=== PATIENT | female | born 1945 | race Caucasian/White ===

== ENCOUNTER 2017-03-29 07:10 | Outpatient (CLI) | payer MEDICARE ==
[~2017-03-29 07:10] MED LIST: ASPI-1265 PO; MULT-1179 PO; NAPR220C15 PO
[2017-03-29 08:44] LABS: BASOPHILS % (AUTO) 0.7 % (0-1); EOSINOPHILS # (AUTO) 0.3 X10'3 (0-0.9); EOSINOPHILS % (AUTO) 6.1 % (0-6); HEMATOCRIT 39.8 % (35.0-45.0); HEMOGLOBIN 13.5 g/dl (12.0-16.0); LYMPHOCYTES # (AUTO) 1.6 X10'3 (1.1-4.8); LYMPHOCYTES % (AUTO) 33.9 % (21-51); MEAN CORPUSCULAR HGB CONC 33.9 % (33.0-36.5); MEAN CORPUSCULAR VOLUME 91.2 FL (78-98); MEAN PLATELET VOLUME 7.8 FL (7.4-10.4); MONOCYTES # (AUTO) 0.4 X10'3 (0-0.9); MONOCYTES % (AUTO) 8.2 % (2-12); NEUTROPHILS # (AUTO) 2.5 X10'3 (1.8-7.7); NEUTROPHILS % (AUTO) 51.1 % (42-75); PLATELET COUNT 247 X10'3 (140-440); RED BLOOD COUNT 4.37 X10'6 (4.20-5.60); RED CELL DISTRIBUTION WIDTH 13.7 % (11.5-14.5); WHITE BLOOD COUNT 4.8 X10'3 (4.5-11.0)
[2017-03-29 08:44] LABS: CLARITY,URINE CLOUDY (Clear); COLOR,URINE YELLOW (Yellow); GLUCOSE, URINE NEGATIVE (Neg); KETONES,URINE NEGATIVE (Neg); LEUKOCYTE ESTERASE ,URINE SMALL (Neg); NITRITES, URINE NEGATIVE (Neg); OCCULT BLOOD,URINE TRACE-INTACT (Neg); PH,URINE 7.5 (4.8-8.0); PROTEIN,URINE NEGATIVE (Neg); UROBILINOGEN,URINE 0.2 E.U/dL (0.2-1.0)
[2017-03-29 08:49] LABS: UA COLLECTION TYPE CLN CATCH MIDSTREAM
[2017-03-29 08:57] LABS: ALANINE AMINOTRANSFERASE 24 U/L (12-78); ALBUMIN 3.8 G/DL (3.4-5.0); ALBUMIN/GLOBULIN RATIO 0.9 (1.1-1.5); ALKALINE PHOSPHATASE 57 IU/L (46-116); ANION GAP 8 (8-16); ASPARTATE AMINO TRANSFERASE 18 U/L (10-37); BILIRUBIN,TOTAL 0.4 MG/DL (0.1-1.0); BLOOD UREA NITROGEN 13 MG/DL (7-18); BUN/CREATININE RATIO 13.4 (6.6-38.0); CALCIUM 9.3 MG/DL (8.5-10.1); CHLORIDE 103 MMOL/L (99-107); CREATININE 0.97 MG/DL (0.40-0.90); GLUCOSE 113 MG/DL (70-104); POTASSIUM 4.4 MMOL/L (3.5-5.1); SODIUM 139 MMOL/L (135-145); TOTAL CARBON DIOXIDE 27.7 MMOL/L (24-32); eGFR 57 ML/MIN
[2017-03-29 09:20] LABS: RBC,URINE 0-2 /HPF (0-2)
[2017-03-29 09:22] LABS: BACTERIA,URINE 4+ /HPF (Neg)
[2017-03-29 09:23] LABS: HYALINE CASTS 0-3 /LPF (NEGATIVE); MUCUS STRANDS FEW /LPF (Neg); SQUAMOUS EPITHELIAL CELL,UR MANY /LPF (FEW)
== END 2017-03-29 23:59 | disposition home or self-care (01) ==
LOC: LAB 07:10
PROVIDERS: ATTEND Surgery
DX: Z01.818 Encounter for other preprocedural examination (principal); Z51.81 Encounter for therapeutic drug level monitoring; N39.0 Urinary tract infection, site not specified
CPT/HCPCS: 36415; 80053; 81001; 85025; 85610; 87070

== ENCOUNTER 2017-04-12 05:20 | Inpatient (IN) | payer MEDICARE ==
[2017-04-12] VITALS (18 sets, daily range): BP systolic 109–134; BP diastolic 55–99
[~2017-04-12] VITALS: Ht 157.5 cm; Wt 78.7 kg
[~2017-04-12 05:20] MED LIST changes: +ALEN70TA48 PO; -ASPI-1265 PO; +CALC-1051 PO; +CHOL10002 PO; +MULT-1133 PO; -MULT-1179 PO; -NAPR220C15 PO; +PARO40TA4 PO; +POTA99TA21 PO; +VITA200C68 PO; +ringers solution, lacted 1,000 ML IV SCH
[2017-04-12] MEDS ORDERED: tranexamic acid inj. 1,000 MG in normal saline 100ml IV soln 90 ML IV ONE (05:30)
[2017-04-12] MEDS ORDERED: acetaminophen 325mg tablet PO ONE (05:30)
[2017-04-12] MEDS ORDERED: gabapentin 300mg capsule PO ONE (05:30)
[2017-04-12] MEDS ORDERED: ceFAZolin 2gm in dextrose, iso 100 ML IV ONE (05:30)
[2017-04-12] MEDS ORDERED: oxyCODONE SR 10mg (sust. release) tab PO ONE (05:30)
[2017-04-12] MEDS ORDERED: famotidine 20mg tablet PO ONE (05:30)
[2017-04-12] MEDS ORDERED: LIDOcaine 1% (10mg/ml) 2ml vial ONE (05:50)
[2017-04-12] MEDS ORDERED: ROPIVAcaine 0.5% (5mg/ml) 30ml vial ONE ×2 (06:21→07:18)
[2017-04-12] MEDS ORDERED: cloNIDine hcl/PF 100mcg/ml inj ONE (07:14)
[2017-04-12] MEDS ORDERED: MIDAZolam 1mg/ml 10ml vial ONE (07:15)
[2017-04-12] MEDS ORDERED: bacitracin inj 150,000 UNIT in sodium chloride irrig. sol 3,000 ML IR ONE (07:15)
[2017-04-12] MEDS ORDERED: fentaNYL/PF 50MCG/1 ML 2ML syringe ONE (07:15)
[2017-04-12] MEDS ORDERED: ePHEDrine 50MG/ML INJ. ONE (07:48)
[2017-04-12] MEDS ORDERED: ringers solution, lacted 1,000 ML IV SCH (08:52)
[2017-04-12] MEDS ORDERED: ondansetron/PF 4mg/2ml inj IV PRN ×2 (08:55→09:45)
[2017-04-12] MEDS ORDERED: meperidine/PF 25mg/ml syringe IV PRN ×3 (08:55)
[2017-04-12] MEDS ORDERED: proCHLORperazine 10 MG/2 ml inj IV PRN (08:55)
[2017-04-12] MEDS ORDERED: ceFAZolin 1000mg inj ONE (09:17)
[2017-04-12] MEDS ORDERED: acetaminophen 325mg tablet PO PRN (09:45)
[2017-04-12] MEDS ORDERED: diphenhydrAMINE 25mg capsule PO PRN ×2 (09:45)
[2017-04-12] MEDS ORDERED: magnesium hydroxide 30ml (MOM) UD suspension PO PRN (09:45)
[2017-04-12] MEDS ORDERED: HYDROmorphone 1 mg/ml syringe IV PRN (09:45)
[2017-04-12] MEDS ORDERED: bisacodyl 10mg suppository rectal RC PRN (09:45)
[2017-04-12] MEDS: oxyCODONE IR 5mg (immed. release) tablet PO PRN ×3 (13:23→21:15)
[2017-04-12] MEDS: acetaminophen 325mg tablet PO SCH ×2 (13:23→21:13)
[2017-04-12] MEDS: potassium cl 20mEq in 1/2 NS 1,000 ML IV SCH ×2 (14:50→22:43)
[2017-04-12] MEDS: cefazolin 1gm/NS 100mL 100 ML IV SCH (17:28)
[2017-04-12] MEDS: celeCOXIB 100mg capsule PO SCH (21:14)
[2017-04-12] MEDS: ascorbic acid 500mg tablet PO SCH (21:14)
[2017-04-12] MEDS: sennosides 8.6mg tablet PO SCH (21:14)
[2017-04-13] MEDS: oxyCODONE IR 5mg (immed. release) tablet PO PRN ×5 (01:02→19:16)
[2017-04-13] MEDS: cefazolin 1gm/NS 100mL 100 ML IV SCH (01:05)
[2017-04-13] MEDS: acetaminophen 325mg tablet PO SCH ×4 (01:07→19:20)
[2017-04-13 06:00] VITALS: BP 142/69
[2017-04-13 06:36] LABS: BASOPHILS % (AUTO) 0.4 % (0-1); EOSINOPHILS # (AUTO) 0.1 X10'3 (0-0.9); EOSINOPHILS % (AUTO) 1.2 % (0-6); HEMATOCRIT 30.7 % (35.0-45.0); HEMOGLOBIN 10.5 g/dl (12.0-16.0); LYMPHOCYTES # (AUTO) 1.8 X10'3 (1.1-4.8); LYMPHOCYTES % (AUTO) 21.1 % (21-51); MEAN CORPUSCULAR HEMOGLOBIN 31.2 PG (27.0-31.0); MEAN CORPUSCULAR HGB CONC 34.3 % (33.0-36.5); MEAN CORPUSCULAR VOLUME 90.9 FL (78-98); MEAN PLATELET VOLUME 7.9 FL (7.4-10.4); MONOCYTES # (AUTO) 1.2 X10'3 (0-0.9); MONOCYTES % (AUTO) 13.8 % (2-12); NEUTROPHILS # (AUTO) 5.4 X10'3 (1.8-7.7); NEUTROPHILS % (AUTO) 63.5 % (42-75); PLATELET COUNT 212 X10'3 (140-440); RED BLOOD COUNT 3.38 X10'6 (4.20-5.60); RED CELL DISTRIBUTION WIDTH 13.4 % (11.5-14.5); WHITE BLOOD COUNT 8.5 X10'3 (4.5-11.0)
[2017-04-13 06:45] LABS: INR 1.2 INR
[2017-04-13 06:51] LABS: ANION GAP 5 (8-16); CHLORIDE 104 MMOL/L (99-107); SODIUM 137 MMOL/L (135-145); TOTAL CARBON DIOXIDE 27.7 MMOL/L (24-32)
[2017-04-13] MEDS: ascorbic acid 500mg tablet PO SCH ×2 (07:25→19:16)
[2017-04-13] MEDS: multivitamins, therapeutics tablet PO SCH (07:25)
[2017-04-13] MEDS: celeCOXIB 100mg capsule PO SCH ×2 (07:25→19:16)
[2017-04-13] MEDS: potassium cl 20mEq in 1/2 NS 1,000 ML IV SCH ×2 (07:26→20:58)
[2017-04-13] MEDS: PARoxetine 20mg tablet PO SCH (07:26)
[2017-04-13 10:00] VITALS: BP 135/66
[2017-04-13] MEDS ORDERED: warfarin 5mg tablet PO ONE (10:00)
[2017-04-13] MEDS: bisacodyl 5mg tablet.DR PO PRN (13:24)
[2017-04-13 13:56] VITALS: BP 132/69
[2017-04-13 18:00] VITALS: BP 143/88
[2017-04-13] MEDS: sennosides 8.6mg tablet PO SCH (21:01)
[2017-04-13 22:00] VITALS: BP 131/67
[2017-04-14] MEDS: oxyCODONE IR 5mg (immed. release) tablet PO PRN ×6 (00:46→23:54)
[2017-04-14] MEDS: acetaminophen 325mg tablet PO SCH ×2 (01:06→08:12)
[2017-04-14] MEDS: potassium cl 20mEq in 1/2 NS 1,000 ML IV SCH (01:10)
[2017-04-14 06:31] LABS: BASOPHILS % (AUTO) 0.3 % (0-1); EOSINOPHILS # (AUTO) 0.2 X10'3 (0-0.9); EOSINOPHILS % (AUTO) 1.8 % (0-6); HEMATOCRIT 32.7 % (35.0-45.0); HEMOGLOBIN 10.8 g/dl (12.0-16.0); LYMPHOCYTES # (AUTO) 1.4 X10'3 (1.1-4.8); LYMPHOCYTES % (AUTO) 14.9 % (21-51); MEAN CORPUSCULAR HEMOGLOBIN 30.2 PG (27.0-31.0); MEAN CORPUSCULAR HGB CONC 32.9 % (33.0-36.5); MEAN CORPUSCULAR VOLUME 91.8 FL (78-98); MEAN PLATELET VOLUME 8.1 FL (7.4-10.4); MONOCYTES # (AUTO) 1.3 X10'3 (0-0.9); MONOCYTES % (AUTO) 13.6 % (2-12); NEUTROPHILS # (AUTO) 6.7 X10'3 (1.8-7.7); NEUTROPHILS % (AUTO) 69.4 % (42-75); PLATELET COUNT 212 X10'3 (140-440); RED BLOOD COUNT 3.56 X10'6 (4.20-5.60); RED CELL DISTRIBUTION WIDTH 13.6 % (11.5-14.5); WHITE BLOOD COUNT 9.7 X10'3 (4.5-11.0)
[2017-04-14 06:37] LABS: INR 1.1 INR; PROTHROMBIN TIME 11.5 SECONDS (9.0-12.0)
[2017-04-14] MEDS: multivitamins, therapeutics tablet PO SCH (08:11)
[2017-04-14] MEDS: PARoxetine 20mg tablet PO SCH (08:11)
[2017-04-14] MEDS: celeCOXIB 100mg capsule PO SCH ×2 (08:11→19:45)
[2017-04-14] MEDS: ascorbic acid 500mg tablet PO SCH ×2 (08:12→19:44)
[2017-04-14] MEDS ORDERED: acetaminophen 325mg tablet PO PRN (09:45)
[2017-04-14] MEDS ORDERED: warfarin 7.5mg tablet PO ONE (10:00)
[2017-04-14 11:00] VITALS: BP 107/56
[2017-04-14] MEDS ORDERED: mineral oil 133ml enema RC PRN (15:00)
[2017-04-14 18:00] VITALS: BP 133/82
[2017-04-14] MEDS: sennosides 8.6mg tablet PO SCH (19:44)
[2017-04-14] MEDS: bisacodyl 5mg tablet.DR PO PRN (19:45)
[2017-04-14 22:00] VITALS: BP 118/60
[2017-04-15] MEDS: oxyCODONE IR 5mg (immed. release) tablet PO PRN ×2 (05:46→09:54)
[2017-04-15 06:00] VITALS: BP 124/65
[2017-04-15 06:08] LABS: BASOPHILS % (AUTO) 0.4 % (0-1); EOSINOPHILS # (AUTO) 0.2 X10'3 (0-0.9); EOSINOPHILS % (AUTO) 2.4 % (0-6); HEMATOCRIT 31.8 % (35.0-45.0); HEMOGLOBIN 10.6 g/dl (12.0-16.0); LYMPHOCYTES # (AUTO) 1.7 X10'3 (1.1-4.8); LYMPHOCYTES % (AUTO) 20.2 % (21-51); MEAN CORPUSCULAR HEMOGLOBIN 30.5 PG (27.0-31.0); MEAN CORPUSCULAR HGB CONC 33.5 % (33.0-36.5); MEAN CORPUSCULAR VOLUME 91.1 FL (78-98); MEAN PLATELET VOLUME 8.1 FL (7.4-10.4); MONOCYTES # (AUTO) 1.1 X10'3 (0-0.9); MONOCYTES % (AUTO) 12.8 % (2-12); NEUTROPHILS # (AUTO) 5.4 X10'3 (1.8-7.7); NEUTROPHILS % (AUTO) 64.2 % (42-75); PLATELET COUNT 240 X10'3 (140-440); RED BLOOD COUNT 3.49 X10'6 (4.20-5.60); RED CELL DISTRIBUTION WIDTH 13.7 % (11.5-14.5); WHITE BLOOD COUNT 8.5 X10'3 (4.5-11.0)
[2017-04-15 06:18] LABS: INR 1.1 INR; PROTHROMBIN TIME 11.8 SECONDS (9.0-12.0)
[2017-04-15] MEDS: PARoxetine 20mg tablet PO SCH (08:23)
[2017-04-15] MEDS: celeCOXIB 100mg capsule PO SCH (08:24)
[2017-04-15] MEDS: ascorbic acid 500mg tablet PO SCH (08:24)
[2017-04-15] MEDS: multivitamins, therapeutics tablet PO SCH (08:24)
[2017-04-15 10:00] VITALS: BP 107/63
[2017-04-15] MEDS ORDERED: warfarin 10mg tablet PO ONE (10:00)
== END 2017-04-15 11:30 | DRG 470 ==
LOC: PAS IN 05:20 → EDSTATUS 07:30 → ORTHO 4S 11:00
PROVIDERS: ADMIT Specialist; ATTEND Specialist
PROC: 3E0T3BZ Introduction of Anesthetic Agent into Peripheral Nerves and Plexi, Percutaneous Approach (ICD-10-PCS; 2017-04-12)
PROC: 0SRC0J9 Replacement of Right Knee Joint with Synthetic Substitute, Cemented, Open Approach (ICD-10-PCS; principal; 2017-04-12 07:17)
DX: M17.11 Unilateral primary osteoarthritis, right knee (principal); D62 Acute posthemorrhagic anemia; F32.9 Major depressive disorder, single episode, unspecified; E66.3 Overweight; M81.0 Age-related osteoporosis without current pathological fracture; M21.161 Varus deformity, not elsewhere classified, right knee; Z79.83 Long term (current) use of bisphosphonates; Z79.899 Other long term (current) drug therapy; Z68.31 Body mass index [BMI] 31.0-31.9, adult
CPT/HCPCS: 36415; 73560; 80051; 85025; 85610; 97110; 97116; 97161; 97530; A6449; A6455; A7000; C1713; C1758; C1776; J0690; J0735; J2250; J2795; J3010; J3490; J7030; J7120

== ENCOUNTER 2017-10-10 08:51 | Emergency (ER) | payer MEDICARE ==
[~2017-10-10] VITALS: Ht 157.5 cm; Wt 78.0 kg
[~2017-10-10 08:51] MED LIST changes: -ringers solution, lacted 1,000 ML IV SCH
[2017-10-10 08:58] VITALS: BP 142/67
[2017-10-10] MEDS ORDERED: TRAM50TA2 PO (10:25)
== END 2017-10-10 10:45 | disposition home or self-care (01) ==
LOC: ER 08:52
DX: M54.5 Low back pain (principal); Z79.899 Other long term (current) drug therapy
CPT/HCPCS: 99283

== ENCOUNTER 2018-01-24 08:15 | Inpatient (IN) | payer MEDICARE ==
[~2018-01-24] VITALS: Ht 157.5 cm; Wt 77.3 kg
[2018-01-24] MEDS ORDERED: HYDROcodone/acetaminophen 10/325mg tab PO ONE (08:35)
[2018-01-24] MEDS ORDERED: traMADol 50MG tablet PO ONE (08:45)
[2018-01-24] MEDS ORDERED: enoxaparin 100mg/ml syringe SUBCUT ONE (09:40)
[2018-01-24] MEDS ORDERED: DULO30CA51 PO (10:01)
[2018-01-24 10:13] LABS: BASOPHILS % (AUTO) 0.3 % (0-1); EOSINOPHILS # (AUTO) 0.1 X10'3 (0-0.9); EOSINOPHILS % (AUTO) 1.5 % (0-6); HEMATOCRIT 37.6 % (35.0-45.0); HEMOGLOBIN 12.3 g/dl (12.0-16.0); LYMPHOCYTES # (AUTO) 1.7 X10'3 (1.1-4.8); LYMPHOCYTES % (AUTO) 25.6 % (21-51); MEAN CORPUSCULAR HEMOGLOBIN 29.9 PG (27.0-31.0); MEAN CORPUSCULAR HGB CONC 32.8 % (33.0-36.5); MEAN CORPUSCULAR VOLUME 91.1 FL (78-98); MEAN PLATELET VOLUME 8.2 FL (7.4-10.4); MONOCYTES # (AUTO) 0.6 X10'3 (0-0.9); NEUTROPHILS # (AUTO) 4.2 X10'3 (1.8-7.7); NEUTROPHILS % (AUTO) 63.6 % (42-75); PLATELET COUNT 254 X10'3 (140-440); RED BLOOD COUNT 4.13 X10'6 (4.20-5.60); RED CELL DISTRIBUTION WIDTH 13.5 % (11.5-14.5); WHITE BLOOD COUNT 6.6 X10'3 (4.5-11.0)
[2018-01-24 10:24] LABS: PARTIAL THROMBOPLASTIN TIME 26 SECONDS (22-32); PROTHROMBIN TIME 9.9 SECONDS (9.0-12.0)
[2018-01-24 10:26] LABS: ALANINE AMINOTRANSFERASE 20 U/L (12-78); ALBUMIN 3.2 G/DL (3.4-5.0); ALBUMIN/GLOBULIN RATIO 0.8 (1.1-1.5); ALKALINE PHOSPHATASE 75 IU/L (46-116); ANION GAP 7 (8-16); ASPARTATE AMINO TRANSFERASE 17 U/L (10-37); BILIRUBIN,TOTAL 0.3 MG/DL (0.1-1.0); BLOOD UREA NITROGEN 17 MG/DL (7-18); BUN/CREATININE RATIO 16.7 (6.6-38.0); CALCIUM 8.8 MG/DL (8.5-10.1); CHLORIDE 105 MMOL/L (99-107); CREATININE 1.02 MG/DL (0.40-0.90); GLUCOSE 97 MG/DL (70-104); POTASSIUM 4.7 MMOL/L (3.5-5.1); SODIUM 141 MMOL/L (135-145); TOTAL CARBON DIOXIDE 28.6 MMOL/L (24-32); TOTAL PROTEIN 7.4 G/DL (6.4-8.2); eGFR 53 ML/MIN
[2018-01-24] MEDS ORDERED: magnesium Cl slow-release 64mg tablet PO PRN (11:35)
[2018-01-24] MEDS ORDERED: mag hydrox/Alum hydrox/simeth 30ml oral suspension PO PRN (11:35)
[2018-01-24] MEDS ORDERED: acetaminophen 325mg tablet PO PRN (11:35)
[2018-01-24] MEDS ORDERED: ondansetron/PF 4mg/2ml inj IV PRN (11:35)
[2018-01-24] MEDS ORDERED: magnesium 4gm in 100ml NS 100 ML IV PRN (11:35)
[2018-01-24] MEDS ORDERED: potassium Cl 40MEQ/NS 500ml 500 ML IV PRN ×2 (11:35)
[2018-01-24] MEDS ORDERED: potassium Cl 20 mEq SR tablet PO PRN ×2 (11:35)
[2018-01-24] MEDS ORDERED: magnesium 1gm/100ml D5W IVPB 100 ML IV PRN (11:35)
[2018-01-24] MEDS ORDERED: magnesium hydroxide 30ml (MOM) UD suspension PO PRN (11:35)
[2018-01-24] MEDS: normal saline 1000ml 1,000 ML IV SCH (12:21)
[2018-01-24 13:30] VITALS: BP 128/57
[2018-01-24] MEDS: HYDROcodone/acetaminophen 5mg/325mg tablet PO PRN (17:55)
[2018-01-24 18:00] VITALS: BP 117/60
[2018-01-24] MEDS: enoxaparin 80mg/0.8ml syringe SUBCUT SCH (19:54)
[2018-01-24] MEDS ORDERED: heparin, porcine 5000 units/ml vial SQ SCH (20:00)
[2018-01-24 22:00] VITALS: BP 121/59
[2018-01-25] MEDS: HYDROcodone/acetaminophen 5mg/325mg tablet PO PRN (03:30)
[2018-01-25 05:58] LABS: BASOPHILS % (AUTO) 0.2 % (0-1); EOSINOPHILS # (AUTO) 0.2 X10'3 (0-0.9); EOSINOPHILS % (AUTO) 3.2 % (0-6); HEMATOCRIT 36.3 % (35.0-45.0); HEMOGLOBIN 12.2 g/dl (12.0-16.0); LYMPHOCYTES # (AUTO) 1.9 X10'3 (1.1-4.8); LYMPHOCYTES % (AUTO) 33.2 % (21-51); MEAN CORPUSCULAR HEMOGLOBIN 30.4 PG (27.0-31.0); MEAN CORPUSCULAR HGB CONC 33.6 % (33.0-36.5); MEAN CORPUSCULAR VOLUME 90.5 FL (78-98); MEAN PLATELET VOLUME 8.1 FL (7.4-10.4); MONOCYTES # (AUTO) 0.6 X10'3 (0-0.9); MONOCYTES % (AUTO) 10.2 % (2-12); NEUTROPHILS % (AUTO) 53.2 % (42-75); PLATELET COUNT 250 X10'3 (140-440); RED BLOOD COUNT 4.02 X10'6 (4.20-5.60); RED CELL DISTRIBUTION WIDTH 13.6 % (11.5-14.5); WHITE BLOOD COUNT 5.6 X10'3 (4.5-11.0)
[2018-01-25 06:41] VITALS: BP 133/64
[2018-01-25 06:41] LABS: ALANINE AMINOTRANSFERASE 20 U/L (12-78); ALBUMIN 3.1 G/DL (3.4-5.0); ALBUMIN/GLOBULIN RATIO 0.8 (1.1-1.5); ALKALINE PHOSPHATASE 64 IU/L (46-116); ANION GAP 5 (8-16); ASPARTATE AMINO TRANSFERASE 16 U/L (10-37); BILIRUBIN,TOTAL 0.4 MG/DL (0.1-1.0); BLOOD UREA NITROGEN 15 MG/DL (7-18); BUN/CREATININE RATIO 13.6 (6.6-38.0); CALCIUM 8.6 MG/DL (8.5-10.1); CHLORIDE 104 MMOL/L (99-107); GLUCOSE 106 MG/DL (70-104); MAGNESIUM 1.7 MG/DL (1.5-2.4); SODIUM 138 MMOL/L (135-145); TOTAL CARBON DIOXIDE 28.6 MMOL/L (24-32); TOTAL PROTEIN 7.2 G/DL (6.4-8.2); eGFR 49 ML/MIN
[2018-01-25] MEDS: enoxaparin 80mg/0.8ml syringe SUBCUT SCH (07:22)
[2018-01-25] MEDS: normal saline 1000ml 1,000 ML IV SCH (07:24)
[2018-01-25] MEDS ORDERED: calcium carbonate/vitamin D3 tablet PO SCH (08:00)
[2018-01-25] MEDS ORDERED: PARoxetine 20mg tablet PO SCH (08:00)
[2018-01-25] MEDS ORDERED: VITAMIN D3 PO SCH (08:00)
[2018-01-25] MEDS ORDERED: K and/or MAG REPLACEMENT MC SCH (08:00)
[2018-01-25] MEDS ORDERED: non-formulary drug (Paroxetine HCl 1 TAB) PO SCH (08:00)
[2018-01-25] MEDS ORDERED: CALCIUM CARBONATE PO SCH (08:00)
[2018-01-25 10:57] VITALS: BP 112/79
[2018-01-25] MEDS ORDERED: APIX5TAB3 PO (11:55)
== END 2018-01-25 13:40 | disposition home or self-care (01) | DRG 301 ==
LOC: ER 08:15 → ED HOLD 11:33 → ORTHO 4S 13:15
PROVIDERS: ADMIT Internal Medicine; ATTEND Internal Medicine
DX: I82.491 Acute embolism and thrombosis of other specified deep vein of right lower extremity (principal); I82.412 Acute embolism and thrombosis of left femoral vein; F32.9 Major depressive disorder, single episode, unspecified; M81.0 Age-related osteoporosis without current pathological fracture; Z79.899 Other long term (current) drug therapy
CPT/HCPCS: 36415; 80053; 83735; 85025; 85610; 85730; 87070; 93971; 96372; 99285; G0378; J1650; J7030

== ENCOUNTER 2019-02-01 13:08 | Emergency (ER) | payer MEDICARE ==
[~2019-02-01] VITALS: Ht 157.5 cm; Wt 68.0 kg
[~2019-02-01 13:08] MED LIST changes: -ALEN70TA48 PO; +ALEN70TA60 PO; +APIX5TAB3 PO; -VITA200C68 PO
[2019-02-01 13:12] VITALS: BP 123/58
== END 2019-02-01 15:47 | disposition home or self-care (01) ==
LOC: ER 13:09
DX: S39.012A Strain of muscle, fascia and tendon of lower back, initial encounter (principal); Z72.89 Other problems related to lifestyle; Z86.718 Personal history of other venous thrombosis and embolism
CPT/HCPCS: 93970; 99284

== ENCOUNTER 2019-05-20 10:58 | Emergency (ER) | payer MEDICARE ==
[~2019-05-20] VITALS: Ht 157.5 cm; Wt 81.7 kg
[~2019-05-20 10:58] MED LIST changes: +LIDOcaine 1% W/epiNEPHrine 1:200,000 10ml vial ONE
[2019-05-20 11:06] VITALS: BP 134/70
--- NOTE | 2019-05-20 11:33 | NUR ---
PT SITTING IN CHAIR IN [facility], PLAYING GAMES ON CELL PHONE CO BACK PAIN 01/05
[2019-05-20] MEDS ORDERED: LIDO700A32 TOP (13:05)
== END 2019-05-20 13:16 | disposition home or self-care (01) ==
LOC: ER 10:58
DX: M54.6 Pain in thoracic spine (principal); Z86.718 Personal history of other venous thrombosis and embolism; Z79.899 Other long term (current) drug therapy
CPT/HCPCS: 20552; 99284

== ENCOUNTER 2020-05-20 11:43 | Emergency (ER) | payer MEDICARE ==
[~2020-05-20] VITALS: Ht 157.5 cm; Wt 68.0 kg
[~2020-05-20 11:43] MED LIST changes: +LIDO700A32 TOP; -LIDOcaine 1% W/epiNEPHrine 1:200,000 10ml vial ONE
[2020-05-20 15:16] LABS: BASOPHILS # (AUTO) 0.1 X10'3 (0-0.2); BASOPHILS % (AUTO) 0.7 % (0-1); EOSINOPHILS # (AUTO) 0.1 X10'3 (0-0.9); EOSINOPHILS % (AUTO) 1.3 % (0-6); HEMATOCRIT 42.2 % (35.0-45.0); HEMOGLOBIN 14.1 g/dl (12.0-16.0); LYMPHOCYTES # (AUTO) 2.9 X10'3 (1.1-4.8); LYMPHOCYTES % (AUTO) 32.8 % (21-51); MEAN CORPUSCULAR HEMOGLOBIN 30.2 PG (27.0-31.0); MEAN CORPUSCULAR HGB CONC 33.5 g/dL (33.0-36.5); MEAN CORPUSCULAR VOLUME 90.1 FL (78-98); MEAN PLATELET VOLUME 7.8 FL (7.4-10.4); MONOCYTES # (AUTO) 0.7 X10'3 (0-0.9); MONOCYTES % (AUTO) 8.2 % (2-12); NEUTROPHILS # (AUTO) 5.1 X10'3 (1.8-7.7); PLATELET COUNT 372 X10'3 (140-440); RED BLOOD COUNT 4.68 X10'6 (4.20-5.60); RED CELL DISTRIBUTION WIDTH 13.6 % (11.5-14.5)
[2020-05-20 15:27] LABS: ALANINE AMINOTRANSFERASE 47 U/L (12-78); ALBUMIN/GLOBULIN RATIO 0.9 (1.1-1.5); ALKALINE PHOSPHATASE 77 IU/L (46-116); ANION GAP 11 (8-16); ASPARTATE AMINO TRANSFERASE 26 U/L (10-37); BILIRUBIN,TOTAL 0.4 MG/DL (0.1-1.0); BLOOD UREA NITROGEN 23 MG/DL (7-18); BUN/CREATININE RATIO 22.5 (6.6-38.0); CALCIUM 9.6 MG/DL (8.5-10.1); CHLORIDE 102 MMOL/L (99-107); CREATININE 1.02 MG/DL (0.40-0.90); GLUCOSE 111 MG/DL (70-104); POTASSIUM 4.3 MMOL/L (3.5-5.1); SODIUM 138 MMOL/L (135-145); TOTAL CARBON DIOXIDE 25.1 MMOL/L (24-32); TOTAL PROTEIN 8.7 G/DL (6.4-8.2); eGFR 53 ML/MIN
[2020-05-20] MEDS ORDERED: HYDROcodone/acetaminophen 5mg/325mg tablet PO ONE (15:50)
[2020-05-20 15:57] VITALS: BP 123/97
== END 2020-05-20 15:58 | disposition home or self-care (01) ==
LOC: ER 11:43
DX: M25.512 Pain in left shoulder (principal); G89.29 Other chronic pain; Z86.718 Personal history of other venous thrombosis and embolism; Z90.49 Acquired absence of other specified parts of digestive tract; Z72.89 Other problems related to lifestyle; Z79.899 Other long term (current) drug therapy
CPT/HCPCS: 36415; 71045; 73030; 80053; 84484; 85025; 93005; 99285

== ENCOUNTER 2021-01-09 09:22 | Emergency (ER) | payer MEDICARE ==
[~2021-01-09] VITALS: Ht 157.5 cm; Wt 74.1 kg
[2021-01-09 10:02] VITALS: BP 110/70
== END 2021-01-09 12:05 | disposition home or self-care (01) ==
LOC: ER 09:22
DX: M79.672 Pain in left foot (principal); Z72.89 Other problems related to lifestyle; Z86.718 Personal history of other venous thrombosis and embolism; Z90.49 Acquired absence of other specified parts of digestive tract; Z79.899 Other long term (current) drug therapy
CPT/HCPCS: 73630; 99283